=== PATIENT | male | born 1935 | race Caucasian/White ===

== ENCOUNTER 2016-12-06 03:44 | Inpatient (IN) ==
[2016-12-02 10:26] LABS: MANUAL DIFF NEEDED? NO; URINE MICRO REVIEW NEEDED? NO; URINE SOURCE CLEAN CATCH
[2016-12-02 10:34] LABS: BASO% 0.8 % (0.0-0.8); EOS# 0.34 X1000 (0.0-0.7); EOS% 5.1 % (0.0-10.0); HEMATOCRIT 37.5 % (42.0-52.0); HEMOGLOBIN 12.1 g/dL (14.0-18.0); IMM GRAN# 0.03 X1000 (0.0-0.04); IMM GRAN% 0.5 % (0.0-0.5); LYMPH# 1.14 X1000 (1.2-3.4); LYMPH% 17.2 % (20.5-51.1); MCH 30.3 PG (27-31); MCHC 32.3 g/dL (33-37); MONO% 13.6 % (1.7-9.3); MPV 11.2 FL (7.4-10.4); NEUT% 62.8 % (42.2-75.2); PLT 134 X1000 (130-400); RBC 3.99 XMIL (4.7-6.1)
[2016-12-02 10:38] LABS: BILIRUBIN URINE NEGATIVE (NEGATIVE); BLOOD URINE NEGATIVE (NEGATIVE); COLOR YELLOW; GLUCOSE URINE NEGATIVE (NEGATIVE); LEUKOCYTES URINE NEGATIVE (NEGATIVE); NITRITE URINE NEGATIVE (NEGATIVE); PROTEIN URINE NEGATIVE (NEGATIVE); TURBIDITY URINE CLEAR (CLEAR); UROBILINOGEN URINE NORMAL (NORMAL)
[2016-12-02 10:41] LABS: UR EPITHELIAL CELLS <10 /HPF (<10); URINE BACTERIA NEGATIVE /HPF; URINE RBC <10 /HPF (<10); URINE WBC <10 /HPF (<10)
[2016-12-02 10:42] LABS: INR 0.97; PROTIME 10.2 Seconds (9.2-11.7)
[2016-12-02 10:54] LABS: PTT 19.8 Seconds (22.0-36.0)
[2016-12-02 11:01] LABS: CALCIUM 9.5 mg/dL (8.8-10.2); POTASSIUM 4.4 mmol/L (3.5-5.1)
--- NOTE | 2016-12-02 11:56 | EKG Report ---
Test Performed on : 12/02/2016 10:04:20 AM Test Reason : PAT Blood Pressure : / mmHG Vent. Rate : 070 BPM Atrial Rate : 070 BPM P-R Int : 272 ms QRS Dur : 096 ms QT Int : 388 ms P-R-T Axes : 000 000 038 degrees QTc Int : 419 ms Sinus rhythm. with 1st degree AV block. Inferior-posterior infarct , age undetermined Abnormal ECG When compared with ECG of 02-DEC-2016 10:02, (Unconfirmed) Previous ECG has undetermined rhythm, needs review Confirmed by Dimitrios Hagan MD ([id number]) on 12/03/2016 3:25:42 PM
[2016-12-06] MEDS ORDERED: PEPCID ONE (06:03)
[2016-12-06] MEDS ORDERED: COLACE ONE (06:03)
[2016-12-06] MEDS ORDERED: REGLAN ONE (06:04)
[2016-12-06] MEDS ORDERED: CELEBREX ONE (06:04)
[2016-12-06] MEDS ORDERED: KEFZOL 2 GM/D5W 2 GM/50 ML IVPB ONE (06:04)
[2016-12-06] MEDS ORDERED: LR 1,000 ML ONE (06:04)
[2016-12-06] MEDS ORDERED: LYRICA ONE (06:04)
[2016-12-06] MEDS ORDERED: FENTANYL ONE (06:39)
[2016-12-06] MEDS ORDERED: DIPRIVAN 1% 500 MG/50 ML BOTTLE ONE (06:40)
[2016-12-06] MEDS ORDERED: CYKLOKAPRON 1,000 MG/NS 1,000 MG/100 ML IVPB ONE (07:05)
[2016-12-06] MEDS ORDERED: SODIUM CHLORIDE 0.9% ONE (07:05)
[2016-12-06] MEDS ORDERED: TORADOL ONE (07:05)
[2016-12-06] MEDS ORDERED: MARCAINE 0.25% PF/EPI 1:200,000 ONE (07:05)
[2016-12-06] MEDS ORDERED: EXPAREL 1.3% ONE (07:06)
[2016-12-06] MEDS ORDERED: NEOSPORIN G.U. IRRIGANT ONE (07:06)
[2016-12-06 08:43] LABS: URINE MICRO REVIEW NEEDED? NO; URINE SOURCE CATH
[2016-12-06 08:50] LABS: BILIRUBIN URINE NEGATIVE (NEGATIVE); BLOOD URINE NEGATIVE (NEGATIVE); COLOR YELLOW; GLUCOSE URINE NEGATIVE (NEGATIVE); LEUKOCYTES URINE NEGATIVE (NEGATIVE); NITRITE URINE NEGATIVE (NEGATIVE); PH URINE 5.5; PROTEIN URINE TRACE mg/dL (NEGATIVE); SP GRAVITY URINE 1.018; TURBIDITY URINE CLEAR (CLEAR); UR EPITHELIAL CELLS <10 /HPF (<10); URINE BACTERIA NEGATIVE /HPF; URINE RBC <10 /HPF (<10); URINE WBC <10 /HPF (<10); UROBILINOGEN URINE NORMAL (NORMAL)
[2016-12-06] MEDS ORDERED: NS 1,000 ML ONE (10:10)
--- NOTE | 2016-12-06 10:28 | OPERATIVE NOTE ---
PROCEDURE DATE: 12/06/2016 PREOPERATIVE DIAGNOSIS: Right hip degenerative joint disease. POSTOPERATIVE DIAGNOSIS: Right hip degenerative joint disease. PROCEDURE PERFORMED: Right anterior total hip arthroplasty using a [facility] size 17 stem with a +4 neck length with 36 mm ceramic head and a 58 mm hemispherical shell with a 38 mm acetabular liner. ANESTHESIA: Spinal. SURGEON: Jesus Gaona MD. INSOLE REINFORCER: Ancelmo. SECOND INSOLE REINFORCER: Joshua Kirk RN. COMPLICATIONS: None. BLOOD LOSS: Minimal. DRAINS: Hemovac x1. DESCRIPTION OF PROCEDURE: The patient was brought to the operative suite and placed in supine position after successful administration of spinal anesthesia. The patient was placed on the OSI table in the usual position for right hip. The right hip was then prepped and draped in the usual sterile fashion. A longitudinal incision was made beginning 2 cm distal and 2 cm lateral to the anterior superior iliac spine, extending distally and slightly laterally 8 cm. It was dissected sharply through skin and subcutaneous tissue down to tensor fascia. Tensor fascia was incised and then dissected bluntly down to deep tensor fascia. The deep tensor fascia was incised. The circumflex vessels were electrocauterized exposing the anterior capsule. A T- capsulotomy was performed, exposing the anterior neck. The femoral neck cut was made with an oscillating saw. The femoral head was removed with a power corkscrew. The labrum was resected. The acetabulum was serially reamed to a 58 cup. The 58 cup was then driven into place in the proper amount of inclination and anteversion. Once this verified to be in good position, attention was then directed to the femur. The femur was externally rotated, extended, adducted, and elevated out of the wound with the hook on the OSI bed. The lateral neck was rongeured. The canal was serially broached to a size 7. A size 17+ 4 trial was found to be excellent leg length, offset, fit and fill of the stem and stability of the hip. The trial was removed. Definitive stem was seated onto the femur. The ceramic head was seated on the Jeong taper of the stem and then the hip was again reduced. It was again found to be in excellent position. The hip was copiously irrigated. The anterior capsule was repaired with #2 FiberWire. The hip was copiously infiltrated with Exparel, including the posterior capsule, anterior capsule, anterior musculature , and the subcutaneous tissue. A drain was placed deep to the tensor fascia and exiting distally and laterally and then the tensor fascia was closed with 0 Vicryl. Skin edge approximated with 2-0 Vicryl. Skin was closed with Prineo. The patient tolerated the procedure well without complication. At the end the procedure, all counts correct. The patient was transferred to the recovery room in stable condition. cc: Jesus Gaona MD [facility]
[2016-12-06] MEDS ORDERED: ZOFRAN IV PRN (10:30)
[2016-12-06] MEDS ORDERED: TYLENOL PO SCH (10:30)
[2016-12-06] MEDS ORDERED: MILK OF MAGNESIA PO PRN (10:30)
[2016-12-06] MEDS ORDERED: AMBIEN PO PRN (10:30)
[2016-12-06] MEDS ORDERED: MORPHINE IV PRN (10:30)
[2016-12-06] MEDS ORDERED: OXY IR PO PRN (10:30)
[2016-12-06] MEDS ORDERED: ROBINUL ONE (10:32)
[2016-12-06] MEDS ORDERED: EPHEDRINE ONE (10:32)
[2016-12-06] MEDS ORDERED: XYLOCAINE-MPF 2% ONE (10:32)
[2016-12-06] MEDS ORDERED: LR 2,000 ML ONE (10:33)
[2016-12-06] MEDS ORDERED: DECADRON ONE (10:33)
[2016-12-06] MEDS ORDERED: OFIRMEV 1000 MG/ISOTONIC SOLN 1,000 MG/100 ML BOTTLE ONE (10:33)
[2016-12-06] MEDS: NS 1,000 ML IV SCH ×2 (11:30→23:21)
[2016-12-06] MEDS ORDERED: VITAMIN D PO SCH (11:45)
[2016-12-06] MEDS ORDERED: CYKLOKAPRON 1,000 MG in NS 100 ML IV ONE (13:45)
[2016-12-06] MEDS: NEURONTIN PO SCH ×2 (14:25→16:41)
[2016-12-06] MEDS: PERIDEX MT SCH ×2 (14:26→21:32)
[2016-12-06] MEDS: ULTRAM PO SCH ×3 (14:27→23:16)
[2016-12-06] MEDS: TYLENOL PO SCH ×2 (15:40→21:34)
[2016-12-06] MEDS: KEFZOL 2 GM/D5W 2 GM/50 ML IVPB IV SCH ×2 (15:40→23:20)
[2016-12-06] MEDS ORDERED: CRESTOR PO SCH (21:00)
[2016-12-06] MEDS ORDERED: UROXATRAL PO SCH (21:00)
[2016-12-06] MEDS ORDERED: LOPRESSOR PO SCH (21:00)
[2016-12-06] MEDS: COLACE PO SCH (21:34)
[2016-12-06] MEDS: CELEBREX PO SCH (21:34)
[2016-12-06] MEDS: HUMULIN R SUBQ SCH (23:20)
[2016-12-07] MEDS: GLUCOPHAGE PO SCH ×2 (00:06→08:45)
[2016-12-07] MEDS: JANUVIA PO SCH ×2 (00:07→08:45)
[2016-12-07] MEDS: ULTRAM PO SCH ×2 (05:29→10:34)
[2016-12-07] MEDS: TYLENOL PO SCH ×2 (05:29→10:35)
[2016-12-07 05:40] LABS: HEMATOCRIT 27.3 % (42.0-52.0); HEMOGLOBIN 8.9 g/dL (14.0-18.0)
[2016-12-07 05:48] LABS: CALCIUM 8.2 mg/dL (8.8-10.2)
[2016-12-07] MEDS ORDERED: XARELTO PO SCH (06:00)
[2016-12-07] MEDS: HUMULIN R SUBQ SCH ×2 (06:01→13:29)
[2016-12-07] MEDS: COLACE PO SCH (08:41)
[2016-12-07] MEDS: CELEBREX PO SCH (08:41)
[2016-12-07] MEDS: NEURONTIN PO SCH (08:42)
[2016-12-07] MEDS: PERIDEX MT SCH (08:45)
[2016-12-07] MEDS ORDERED: DECADRON IV ONE (09:00)
[2016-12-07] MEDS ORDERED: PEPCID PO SCH (09:00)
[2016-12-07] MEDS ORDERED: BUMEX PO SCH (09:00)
[2016-12-07] MEDS ORDERED: SYNTHROID PO SCH (09:00)
[2016-12-07] MEDS ORDERED: COZAAR PO SCH (09:00)
[2016-12-07] MEDS ORDERED: PROSCAR PO SCH (09:00)
[2016-12-07 11:24] VITALS: BP 140/62
--- NOTE | 2016-12-07 15:43 | DISCHARGE SUMMARY ---
ADMISSION DATE: 12/06/2016 DISCHARGE DATE: 12/07/2016 DISCHARGE DIAGNOSIS: Right hip degenerative joint disease, status post right total hip arthroplasty. DISCHARGE MEDICATIONS: See discharge medication list. DISPOSITION: The patient is discharged home with home health. Discharge instructions for total hip arthroplasty protocol. Instructed to return to see Dr. Gaona next . HOSPITAL COURSE: On the day of admission, patient underwent a right total hip arthroplasty. His postoperative course was unremarkable. At discharge, he is afebrile. Tolerating a regular diet, ambulating well with physical therapy. Yesterday he walked 250 feet. His hemoglobin is 8.9, hematocrit is 27.3, and he had 195 mL of output from his drain. His wound is clean, dry, and intact without sign of infection, and he is discharged home with home health in stable condition after second physical therapy today if it is okay with Dr. Marcial concerning his elevated creatinine. He is instructed to follow up as described above. Dictated by MIKI Odell for Jesus Gaona MD cc: MIKI Odell MD
== END 2016-12-07 14:05 | disposition home health service (06) ==
LOC: SURHOLD 03:44 → 4N 08:14
PROVIDERS: ADMIT Orthopaedic Surgery; ATTEND Orthopaedic Surgery